=== PATIENT | female | born 1960 | race Caucasian/White ===

== ENCOUNTER 2023-07-23 14:27 | Inpatient (IN) ==
[2023-07-23] MEDS ORDERED: Propofol 10 mg/ml 100 ML BTL 1,000 MG/100 ML BTL ONE ×2 (20:05→20:21)
[2023-07-23] MEDS: Propofol 10 mg/ml 100 ML BTL 1,000 MG/100 ML BTL IV SCH (20:15)
[2023-07-23] MEDS ORDERED: fentaNYL 100 mcg/2 ml 50 MCG/ML VIAL ONE (20:23)
[2023-07-23] MEDS ORDERED: fentaNYL 100 mcg/2 ml 50 MCG/ML VIAL IV SLOW PU ONE (20:35)
[2023-07-23] MEDS: Chlorhexidine MOUTHWASH 0.12% 15 ML UDC TOPICAL SCH (20:59)
[2023-07-23] MEDS: fentaNYL INFUSION 50 mcg/mL VL 2,500 MCG/50 ML VIAL IV SCH (21:00)
[2023-07-23 21:21] LABS: ABS Basophils 0.1 10^3/uL (0.0-0.1); ABS Lymphocytes 0.2 10^3/uL (1.0-4.8); ABS Monocytes 0.2 10^3/uL (0.0-0.9); ABS Neutrophils 5.9 10^3/uL (1.5-7.6); ABS Nucleated RBC 0.01 10^3/ul; Hematocrit 33.3 % (35-45); Hemoglobin 11.6 g/dL (11.5-14.3); Lymphocyte % 3.9 %; Mean Corpuscular Hemoglobin 34.8 pg (27-33); Mean Corpuscular Hgb Conc 34.7 g/dL (31-36); Mean Corpuscular Volume 100.2 fL (80-97); Mean Platelet Volume 7.8 fL (7.5-11.2); Nucleated Red Blood Cells % 0.1 %/100WBC (0.0-0.8); Platelet Count 240 10^3/uL (150-450); Red Blood Count 3.32 10^6/uL (3.63-4.92); Red Cell Distribution Width 16.5 % (12-17); White Blood Count 6.4 10^3/uL (3.8-11.8)
[2023-07-23 21:40] LABS: Albumin 3.3 g/dL (3.2-5.2); Albumin/Globulin Ratio 1.4 (1-3); C Reactive Protein 9.72 mg/L (<8.01); Creatinine, Serum 0.86 mg/dL (0.51-0.95); Globulin 2.3 g/dL (2-4); Magnesium 1.6 mg/dL (1.9-2.7); Potassium 3.6 mmol/L (3.5-5.0); Total Bilirubin 0.4 mg/dL (0.2-1.0); Total Protein 5.6 g/dL (6.4-8.9); eGFR CKD-EPI 75.9 (>60)
[2023-07-23] MEDS ORDERED: Folic Acid IV 1 MG in NS 0.9% 50 ML 50 ML IV ONE (22:35)
[2023-07-23] MEDS ORDERED: Magnesium Sulfate 2 gm BAG 2 GM/50 ML BAG IVPB ONE (22:36)
[2023-07-23] MEDS: Enoxaparin 60 MG/0.6 ML SYR SUBCUT SCH (23:43)
[2023-07-23] MEDS: Pantoprazole VIAL 40 MG VIAL IV SCH (23:44)
[2023-07-23] MEDS: Thiamine 100 MG/ML 2 ml VIAL 100 MG in NS 0.9% 50 ML 50 ML IV SCH (23:59)
[2023-07-24 00:39] LABS: Urine Appearance Cloudy; Urine Bilirubin Negative (Negative); Urine Blood Negative (Negative); Urine Color Yellow; Urine Glucose Negative (Negative); Urine Ketones Negative (Negative); Urine Nitrite Negative (Negative); Urine Protein 1+(30 mg/dL) (Negative); Urine Specific Gravity 1.023 (1.002-1.030); Urine Urobilinogen Negative (Negative)
[2023-07-24 00:47] LABS: Urine Bacteria Absent (Absent); Urine Granular Casts Present (Absent); Urine Red Blood Cell 1+(3-5/hpf) (Absent); Urine Squamous Epithelial Cell Present (Absent); Urine White Blood Cell Absent (Absent)
[2023-07-24] MEDS: Propofol 10 mg/ml 100 ML BTL 1,000 MG/100 ML BTL IV SCH ×4 (01:33→21:26)
[2023-07-24] MEDS: Chlorhexidine MOUTHWASH 0.12% 15 ML UDC TOPICAL SCH ×6 (02:03→23:29)
[2023-07-24] MEDS ORDERED: fentaNYL 100 mcg/2 ml 50 MCG/ML VIAL IV SLOW PU ONE (02:47)
[2023-07-24] MEDS ORDERED: fentaNYL 100 mcg/2 ml 50 MCG/ML VIAL ONE (02:48)
[2023-07-24 05:29] LABS: ABS Lymphocytes 0.5 10^3/uL (1.0-4.8); ABS Monocytes 0.4 10^3/uL (0.0-0.9); ABS Neutrophils 5.8 10^3/uL (1.5-7.6); Hematocrit 30.8 % (35-45); Hemoglobin 10.7 g/dL (11.5-14.3); Lymphocyte % 6.9 %; Mean Corpuscular Hemoglobin 34.9 pg (27-33); Mean Corpuscular Hgb Conc 34.7 g/dL (31-36); Mean Corpuscular Volume 100.4 fL (80-97); Platelet Count 213 10^3/uL (150-450); Red Blood Count 3.07 10^6/uL (3.63-4.92); Red Cell Distribution Width 16.6 % (12-17); White Blood Count 6.7 10^3/uL (3.8-11.8)
[2023-07-24 05:48] LABS: Albumin 3.2 g/dL (3.2-5.2); Albumin/Globulin Ratio 1.5 (1-3); Calcium 8.1 mg/dL (8.6-10.3); Creatinine, Serum 0.83 mg/dL (0.51-0.95); Globulin 2.1 g/dL (2-4); Magnesium 2.5 mg/dL (1.9-2.7); Potassium 3.7 mmol/L (3.5-5.0); Total Bilirubin 0.3 mg/dL (0.2-1.0); Total Protein 5.3 g/dL (6.4-8.9); eGFR CKD-EPI 79.2 (>60)
[2023-07-24] MEDS: Enoxaparin 60 MG/0.6 ML SYR SUBCUT SCH ×2 (11:29→23:29)
[2023-07-24] MEDS ORDERED: Midazolam 5 mg/5 ml VIAL 1 mg/ml 5 ml VIAL (5 mg) ONE ×2 (11:50→13:57)
[2023-07-24] MEDS: Midazolam 2 mg/2 ml VIAL 1 mg/ml 2 ml VIAL (2 mg) IV SLOW PU SCH ×3 (11:52→14:01)
[2023-07-24] MEDS: fentaNYL INFUSION 50 mcg/mL VL 2,500 MCG/50 ML VIAL IV SCH (14:33)
[2023-07-24] MEDS: Dexamethasone IV 4 MG/ML VIAL 1 ml VIAL IV SLOW PU SCH (17:37)
[2023-07-24] MEDS: Pantoprazole VIAL 40 MG VIAL IV SCH (23:29)
[2023-07-24] MEDS: Thiamine 100 MG/ML 2 ml VIAL 100 MG in NS 0.9% 50 ML 50 ML IV SCH (23:43)
[2023-07-25] MEDS: Propofol 10 mg/ml 100 ML BTL 1,000 MG/100 ML BTL IV SCH ×4 (01:45→18:38)
[2023-07-25] MEDS: Chlorhexidine MOUTHWASH 0.12% 15 ML UDC TOPICAL SCH ×6 (01:46→21:32)
[2023-07-25 04:40] LABS: ABS Lymphocytes 0.3 10^3/uL (1.0-4.8); ABS Monocytes 0.1 10^3/uL (0.0-0.9); ABS Neutrophils 4.7 10^3/uL (1.5-7.6); ABS Nucleated RBC 0.01 10^3/ul; Eosinophil % 0.2 %; Hematocrit 30.9 % (35-45); Hemoglobin 10.6 g/dL (11.5-14.3); Lymphocyte % 6.7 %; Mean Corpuscular Hemoglobin 35.1 pg (27-33); Mean Corpuscular Hgb Conc 34.4 g/dL (31-36); Mean Corpuscular Volume 102.2 fL (80-97); Mean Platelet Volume 8.5 fL (7.5-11.2); Nucleated Red Blood Cells % 0.1 %/100WBC (0.0-0.8); Platelet Count 208 10^3/uL (150-450); Red Blood Count 3.03 10^6/uL (3.63-4.92); Red Cell Distribution Width 16.8 % (12-17); White Blood Count 5.2 10^3/uL (3.8-11.8)
[2023-07-25] MEDS: fentaNYL INFUSION 50 mcg/mL VL 2,500 MCG/50 ML VIAL IV SCH ×2 (04:54→21:25)
[2023-07-25 04:58] LABS: Albumin 3.1 g/dL (3.2-5.2); Albumin/Globulin Ratio 1.4 (1-3); Calcium 8.1 mg/dL (8.6-10.3); Creatinine, Serum 0.79 mg/dL (0.51-0.95); Globulin 2.2 g/dL (2-4); HDL Cholesterol 76.3 mg/dL; Magnesium 2.5 mg/dL (1.9-2.7); Potassium 3.7 mmol/L (3.5-5.0); Total Bilirubin 0.3 mg/dL (0.2-1.0); Total Protein 5.3 g/dL (6.4-8.9)
[2023-07-25] MEDS: Midazolam 2 mg/2 ml VIAL 1 mg/ml 2 ml VIAL (2 mg) IV SLOW PU PRN ×5 (07:30→23:57)
[2023-07-25] MEDS: Dexamethasone IV 4 MG/ML VIAL 1 ml VIAL IV SLOW PU SCH (08:46)
[2023-07-25] MEDS: Enoxaparin 60 MG/0.6 ML SYR SUBCUT SCH ×2 (10:48→21:32)
[2023-07-25] MEDS: Thiamine 100 MG/ML 2 ml VIAL 100 MG in NS 0.9% 50 ML 50 ML IV SCH (21:30)
[2023-07-25] MEDS: Pantoprazole VIAL 40 MG VIAL IV SCH (21:32)
[2023-07-25] MEDS ORDERED: Atropine 1 MG/ML INJ 1 ML VIAL IV PUSH PRN (23:43)
[2023-07-25 23:59] LABS: Hematocrit 32.1 % (35-45); Hemoglobin 11.2 g/dL (11.5-14.3); Mean Corpuscular Hemoglobin 35.4 pg (27-33); Mean Corpuscular Hgb Conc 34.8 g/dL (31-36); Mean Corpuscular Volume 101.6 fL (80-97); Mean Platelet Volume 8.4 fL (7.5-11.2); Platelet Count 216 10^3/uL (150-450); Red Blood Count 3.16 10^6/uL (3.63-4.92); Red Cell Distribution Width 16.9 % (12-17); White Blood Count 5.5 10^3/uL (3.8-11.8)
[2023-07-26 00:18] LABS: Calcium 8.5 mg/dL (8.6-10.3); Creatinine, Serum 0.76 mg/dL (0.51-0.95); Magnesium 2.4 mg/dL (1.9-2.7); Potassium 3.8 mmol/L (3.5-5.0)
[2023-07-26] MEDS: Midazolam PREMIXBAG 1 MG/ML NS 100 ML IV SCH ×2 (00:51→19:00)
[2023-07-26] MEDS: Midazolam 2 mg/2 ml VIAL 1 mg/ml 2 ml VIAL (2 mg) IV SLOW PU PRN ×4 (02:12→19:45)
[2023-07-26] MEDS: fentaNYL INFUSION 50 mcg/mL VL 2,500 MCG/50 ML VIAL IV SCH ×2 (02:20→13:45)
[2023-07-26] MEDS: Chlorhexidine MOUTHWASH 0.12% 15 ML UDC TOPICAL SCH ×6 (02:25→23:07)
[2023-07-26 02:32] LABS: ABS Lymphocytes 0.7 10^3/uL (1.0-4.8); ABS Monocytes 0.3 10^3/uL (0.0-0.9); ABS Neutrophils 4.4 10^3/uL (1.5-7.6); ABS Nucleated RBC 0.01 10^3/ul; Eosinophil % 0.2 %; Lymphocyte % 13.2 %; Nucleated Red Blood Cells % 0.2 %/100WBC (0.0-0.8); Target Cells 3+
[2023-07-26 04:27] LABS: Hemoglobin 11.1 g/dL (11.5-14.3); Mean Corpuscular Hemoglobin 35.6 pg (27-33); Mean Corpuscular Hgb Conc 34.8 g/dL (31-36); Mean Corpuscular Volume 102.4 fL (80-97); Mean Platelet Volume 8.8 fL (7.5-11.2); Platelet Count 205 10^3/uL (150-450); Red Blood Count 3.13 10^6/uL (3.63-4.92); Red Cell Distribution Width 16.7 % (12-17); White Blood Count 5.3 10^3/uL (3.8-11.8)
[2023-07-26 04:47] LABS: Albumin 3.1 g/dL (3.2-5.2); Albumin/Globulin Ratio 1.4 (1-3); Calcium 8.4 mg/dL (8.6-10.3); Creatinine, Serum 0.76 mg/dL (0.51-0.95); Globulin 2.2 g/dL (2-4); Magnesium 2.5 mg/dL (1.9-2.7); Potassium 3.4 mmol/L (3.5-5.0); Total Bilirubin 0.3 mg/dL (0.2-1.0); Total Protein 5.3 g/dL (6.4-8.9)
[2023-07-26 05:10] LABS: ABS Basophils 0.1 10^3/uL (0.0-0.1); ABS Lymphocytes 0.9 10^3/uL (1.0-4.8); ABS Monocytes 0.3 10^3/uL (0.0-0.9); Eosinophil % 0.4 %; Lymphocyte % 17.3 %; RBC Morphology Normal (Normal)
[2023-07-26] MEDS ORDERED: Dexamethasone IV 10 MG in NS 0.9% 50 ML 50 ML IVPB ONE (08:00)
[2023-07-26] MEDS ORDERED: Iohexol 350 (CONTRAST) 500 ML MDV IV ONE (09:40)
[2023-07-26] MEDS ORDERED: Labetalol IV 5 MG/ML 20 ml VIAL IV PUSH ONE (10:12)
[2023-07-26] MEDS: Enoxaparin 60 MG/0.6 ML SYR SUBCUT SCH ×2 (11:37→23:07)
[2023-07-26] MEDS ORDERED: hydrALAZINE 20 mg/ml 1 ML Vial IV IV SLOW PU ONE (13:05)
[2023-07-26] MEDS: KCL 20 MEQ/100 ML IVPREMIX 20 MEQ/100 ML BAG IV SCH ×2 (14:33→16:40)
[2023-07-26] MEDS ORDERED: PPN (PERIPHERAL) 24 HR with D10W 1000 ml BAG 1,000 ML, Amino Acid Infusion 10% 850 ML, ... IV SCH (17:00)
[2023-07-26] MEDS: Pantoprazole VIAL 40 MG VIAL IV SCH (23:07)
[2023-07-26] MEDS: Thiamine 100 MG/ML 2 ml VIAL 100 MG in NS 0.9% 50 ML 50 ML IV SCH (23:15)
[2023-07-27] MEDS: Chlorhexidine MOUTHWASH 0.12% 15 ML UDC TOPICAL SCH ×6 (02:51→23:01)
[2023-07-27] MEDS: Midazolam 2 mg/2 ml VIAL 1 mg/ml 2 ml VIAL (2 mg) IV SLOW PU PRN (03:30)
[2023-07-27] MEDS: fentaNYL INFUSION 50 mcg/mL VL 2,500 MCG/50 ML VIAL IV SCH ×2 (04:45→17:41)
[2023-07-27 04:58] LABS: Hematocrit 38.3 % (35-45); Hemoglobin 12.9 g/dL (11.5-14.3); Mean Corpuscular Hemoglobin 34.4 pg (27-33); Mean Corpuscular Hgb Conc 33.5 g/dL (31-36); Mean Corpuscular Volume 102.7 fL (80-97); Mean Platelet Volume 9.1 fL (7.5-11.2); Platelet Count 240 10^3/uL (150-450); Red Blood Count 3.73 10^6/uL (3.63-4.92); Red Cell Distribution Width 17.4 % (12-17); White Blood Count 11.3 10^3/uL (3.8-11.8)
[2023-07-27 05:10] LABS: ABS Basophils 0.1 10^3/uL (0.0-0.1); ABS Lymphocytes 1.9 10^3/uL (1.0-4.8); ABS Monocytes 0.6 10^3/uL (0.0-0.9); ABS Neutrophils 8.8 10^3/uL (1.5-7.6); ABS Nucleated RBC 0.01 10^3/ul; Eosinophil % 0.2 %; Nucleated Red Blood Cells % 0.1 %/100WBC (0.0-0.8)
[2023-07-27 05:14] LABS: Albumin 3.6 g/dL (3.2-5.2); Albumin/Globulin Ratio 1.4 (1-3); Calcium 8.9 mg/dL (8.6-10.3); Creatinine, Serum 0.64 mg/dL (0.51-0.95); Globulin 2.6 g/dL (2-4); Magnesium 2.2 mg/dL (1.9-2.7); Phosphorus 3.8 mg/dL (2.5-5.0); Potassium 4.3 mmol/L (3.5-5.0); Total Bilirubin 0.3 mg/dL (0.2-1.0); Total Protein 6.2 g/dL (6.4-8.9); eGFR CKD-EPI 99.2 (>60)
[2023-07-27] MEDS ORDERED: Labetalol IV 5 MG/ML 20 ml VIAL IV PUSH ONE ×2 (09:07→17:02)
[2023-07-27] MEDS ORDERED: Midazolam 5 mg/5 ml VIAL 1 mg/ml 5 ml VIAL (5 mg) ONE ×2 (09:07→12:43)
[2023-07-27] MEDS ORDERED: Midazolam 10 mg/10 ml VIAL 1 mg/ml 10 ml VIAL (10 mg) IV SLOW PU ONE (09:08)
[2023-07-27] MEDS ORDERED: Labetalol IV 5 MG/ML 20 ml VIAL ONE (09:08)
[2023-07-27] MEDS ORDERED: Rocuronium 50 mg VIAL 10 mg/ml 5 ml VIAL (50 mg) ONE ×2 (09:12→12:55)
[2023-07-27] MEDS ORDERED: Midazolam 5 mg/5 ml VIAL 1 mg/ml 5 ml VIAL (5 mg) IV SLOW PU ONE ×3 (09:12→13:05)
[2023-07-27] MEDS ORDERED: Midazolam 2 mg/2 ml VIAL 1 mg/ml 2 ml VIAL (2 mg) IV SLOW PU ONE ×2 (09:12→13:05)
[2023-07-27] MEDS ORDERED: Rocuronium 50 mg VIAL 10 mg/ml 5 ml VIAL (50 mg) IV ONE ×2 (09:13→13:05)
[2023-07-27] MEDS: Midazolam PREMIXBAG 1 MG/ML NS 100 ML IV SCH ×2 (10:51→21:37)
[2023-07-27] MEDS ORDERED: Furosemide 40 mg/4 ml IV VIAL IV ONE (11:03)
[2023-07-27] MEDS: Enoxaparin 60 MG/0.6 ML SYR SUBCUT SCH ×2 (11:31→23:01)
[2023-07-27] MEDS: Cefepime 2 GM in Dextrose 2 GM/50 ML BAG IV SCH (12:46)
[2023-07-27] MEDS ORDERED: Midazolam 2 mg/2 ml VIAL 1 mg/ml 2 ml VIAL (2 mg) ONE (12:54)
[2023-07-27] MEDS ORDERED: fentaNYL 100 mcg/2 ml 50 MCG/ML VIAL ONE (12:55)
[2023-07-27] MEDS: fentaNYL 100 mcg/2 ml 50 MCG/ML VIAL IV SLOW PU PRN (13:00)
[2023-07-27 18:31] LABS: Body Fluid Source Broncheoalveolar lav
[2023-07-27 18:33] LABS: Body Fluid Appearance Cloudy; Body Fluid Color Yellow
[2023-07-27 19:22] LABS: Body Fluid Total Cells Counted 300
[2023-07-27] MEDS: Pantoprazole VIAL 40 MG VIAL IV SCH (23:01)
[2023-07-27] MEDS: Thiamine 100 MG/ML 2 ml VIAL 100 MG in NS 0.9% 50 ML 50 ML IV SCH (23:01)
[2023-07-28] MEDS: Cefepime 2 GM in Dextrose 2 GM/50 ML BAG IV SCH ×2 (00:53→11:58)
[2023-07-28] MEDS: Chlorhexidine MOUTHWASH 0.12% 15 ML UDC TOPICAL SCH ×6 (02:16→22:42)
[2023-07-28] MEDS: Acetaminophen IV 1 GM/100ML 1,000 MG/100 ML BAG IV PRN ×2 (02:19→14:51)
[2023-07-28 04:59] LABS: ABS Lymphocytes 0.6 10^3/uL (1.0-4.8); ABS Monocytes 0.3 10^3/uL (0.0-0.9); ABS Neutrophils 8.6 10^3/uL (1.5-7.6); Eosinophil % 0.1 %; Hematocrit 35.7 % (35-45); Hemoglobin 12.2 g/dL (11.5-14.3); Lymphocyte % 6.4 %; Mean Corpuscular Hemoglobin 35.1 pg (27-33); Mean Corpuscular Hgb Conc 34.1 g/dL (31-36); Mean Corpuscular Volume 102.9 fL (80-97); Mean Platelet Volume 8.8 fL (7.5-11.2); Platelet Count 160 10^3/uL (150-450); Red Blood Count 3.47 10^6/uL (3.63-4.92); Red Cell Distribution Width 16.5 % (12-17); White Blood Count 9.5 10^3/uL (3.8-11.8)
[2023-07-28 05:06] LABS: Calcium 8.4 mg/dL (8.6-10.3); Creatinine, Serum 0.63 mg/dL (0.51-0.95); Magnesium 1.7 mg/dL (1.9-2.7); Phosphorus 3.8 mg/dL (2.5-5.0); Potassium 3.7 mmol/L (3.5-5.0); eGFR CKD-EPI 99.6 (>60)
[2023-07-28] MEDS ORDERED: Magnesium Sulfate 2 gm BAG 2 GM/50 ML BAG IVPB ONE (05:19)
[2023-07-28] MEDS: fentaNYL 100 mcg/2 ml 50 MCG/ML VIAL IV SLOW PU PRN (06:20)
[2023-07-28] MEDS ORDERED: fentaNYL INFUSION 50 mcg/mL VL 2,500 MCG/50 ML VIAL IV SCH ×2 (07:39→08:04)
[2023-07-28] MEDS: Midazolam PREMIXBAG 1 MG/ML NS 100 ML IV SCH ×2 (08:01→18:30)
[2023-07-28] MEDS: fentaNYL INFUSION 50 mcg/mL VL 2,500 MCG/50 ML VIAL IV SCH ×2 (08:25→22:43)
[2023-07-28] MEDS: Enoxaparin 60 MG/0.6 ML SYR SUBCUT SCH ×2 (10:42→22:43)
[2023-07-28] MEDS: Labetalol IV 5 MG/ML 20 ml VIAL IV PUSH PRN ×2 (11:44→23:16)
[2023-07-28] MEDS ORDERED: Lactated Ringers 1000 ml BAG 1,000 ML IV ONE (15:50)
[2023-07-28] MEDS: Pantoprazole VIAL 40 MG VIAL IV SCH (22:42)
[2023-07-28] MEDS: Thiamine 100 MG/ML 2 ml VIAL 100 MG in NS 0.9% 50 ML 50 ML IV SCH (22:43)
[2023-07-29] MEDS: Cefepime 2 GM in Dextrose 2 GM/50 ML BAG IV SCH ×2 (01:22→17:13)
[2023-07-29] MEDS: Chlorhexidine MOUTHWASH 0.12% 15 ML UDC TOPICAL SCH ×6 (01:23→22:53)
[2023-07-29] MEDS: Acetaminophen IV 1 GM/100ML 1,000 MG/100 ML BAG IV PRN (03:11)
[2023-07-29 03:52] LABS: Calcium 8.4 mg/dL (8.6-10.3); Creatinine, Serum 0.64 mg/dL (0.51-0.95); Potassium 3.6 mmol/L (3.5-5.0); eGFR CKD-EPI 99.2 (>60)
[2023-07-29 03:55] LABS: ABS Eosinophils 0.2 10^3/uL (0.0-0.5); ABS Lymphocytes 0.4 10^3/uL (1.0-4.8); ABS Monocytes 0.3 10^3/uL (0.0-0.9); ABS Neutrophils 6.6 10^3/uL (1.5-7.6); Eosinophil % 2.6 %; Hematocrit 36.5 % (35-45); Hemoglobin 12.4 g/dL (11.5-14.3); Lymphocyte % 5.5 %; Mean Corpuscular Hemoglobin 34.7 pg (27-33); Mean Corpuscular Volume 102.1 fL (80-97); Mean Platelet Volume 9.3 fL (7.5-11.2); Platelet Count 150 10^3/uL (150-450); Red Blood Count 3.58 10^6/uL (3.63-4.92); Red Cell Distribution Width 16.5 % (12-17); White Blood Count 7.5 10^3/uL (3.8-11.8)
[2023-07-29] MEDS: Labetalol IV 5 MG/ML 20 ml VIAL IV PUSH PRN ×2 (08:40→21:36)
[2023-07-29] MEDS: Midazolam PREMIXBAG 1 MG/ML NS 100 ML IV SCH (09:18)
[2023-07-29] MEDS: Enoxaparin 60 MG/0.6 ML SYR SUBCUT SCH ×2 (09:57→22:53)
[2023-07-29] MEDS ORDERED: Magnesium Sulfate 2 gm BAG 2 GM/50 ML BAG IVPB ONE (10:39)
[2023-07-29] MEDS: KCL 20 MEQ/100 ML IVPREMIX 20 MEQ/100 ML BAG IV SCH ×2 (11:09→13:25)
[2023-07-29 13:59] LABS: PCO2 Arterial 43 mmHg (35-45); PO2 Arterial 67 mmHg (80-100)
[2023-07-29] MEDS: fentaNYL INFUSION 50 mcg/mL VL 2,500 MCG/50 ML VIAL IV SCH (17:40)
[2023-07-29] MEDS: Pantoprazole VIAL 40 MG VIAL IV SCH (22:53)
[2023-07-29] MEDS: Thiamine 100 MG/ML 2 ml VIAL 100 MG in NS 0.9% 50 ML 50 ML IV SCH (22:55)
[2023-07-30] MEDS: Cefepime 2 GM in Dextrose 2 GM/50 ML BAG IV SCH ×2 (00:45→13:15)
[2023-07-30] MEDS: Midazolam PREMIXBAG 1 MG/ML NS 100 ML IV SCH (00:45)
[2023-07-30] MEDS: Labetalol IV 5 MG/ML 20 ml VIAL IV PUSH PRN (03:33)
[2023-07-30] MEDS: Chlorhexidine MOUTHWASH 0.12% 15 ML UDC TOPICAL SCH ×6 (03:33→21:43)
[2023-07-30 04:40] LABS: ABS Eosinophils 0.3 10^3/uL (0.0-0.5); ABS Lymphocytes 0.5 10^3/uL (1.0-4.8); ABS Monocytes 0.4 10^3/uL (0.0-0.9); ABS Neutrophils 5.1 10^3/uL (1.5-7.6); Eosinophil % 5.1 %; Lymphocyte % 8.5 %; Mean Corpuscular Hemoglobin 34.8 pg (27-33); Mean Corpuscular Hgb Conc 34.3 g/dL (31-36); Mean Corpuscular Volume 101.4 fL (80-97); Mean Platelet Volume 9.5 fL (7.5-11.2); Platelet Count 172 10^3/uL (150-450); Red Blood Count 3.16 10^6/uL (3.63-4.92); Red Cell Distribution Width 15.8 % (12-17); White Blood Count 6.4 10^3/uL (3.8-11.8)
[2023-07-30 04:55] LABS: Calcium 8.2 mg/dL (8.6-10.3); Creatinine, Serum 0.52 mg/dL (0.51-0.95); Potassium 3.4 mmol/L (3.5-5.0); eGFR CKD-EPI 104.3 (>60)
[2023-07-30] MEDS ORDERED: Labetalol IV 5 MG/ML 20 ml VIAL IV PUSH PRN (05:35)
[2023-07-30] MEDS: KCL 20 MEQ/100 ML IVPREMIX 20 MEQ/100 ML BAG IV SCH ×3 (06:25→23:41)
[2023-07-30] MEDS ORDERED: Furosemide 40 mg/4 ml IV VIAL IV ONE (09:55)
[2023-07-30] MEDS: Enoxaparin 60 MG/0.6 ML SYR SUBCUT SCH ×2 (11:55→23:50)
[2023-07-30] MEDS: Acetaminophen IV 1 GM/100ML 1,000 MG/100 ML BAG IV PRN ×2 (13:08→21:27)
[2023-07-30] MEDS ORDERED: Bumetanide IV 0.25 MG/ML 4 ml VIAL (1 mg) ONE (16:11)
[2023-07-30] MEDS: Bumetanide IV 10 MG in Premix IV 0 ML IV SCH ×2 (16:13→21:22)
[2023-07-30 16:44] LABS: Hematocrit 31.8 % (35-45); Hemoglobin 10.8 g/dL (11.5-14.3); Mean Corpuscular Hemoglobin 34.4 pg (27-33); Mean Corpuscular Hgb Conc 33.8 g/dL (31-36); Mean Corpuscular Volume 101.8 fL (80-97); Mean Platelet Volume 9.7 fL (7.5-11.2); Platelet Count 181 10^3/uL (150-450); Red Blood Count 3.13 10^6/uL (3.63-4.92); Red Cell Distribution Width 15.9 % (12-17); White Blood Count 6.5 10^3/uL (3.8-11.8)
[2023-07-30] MEDS: Midazolam 2 mg/2 ml VIAL 1 mg/ml 2 ml VIAL (2 mg) IV SLOW PU PRN ×2 (17:08→19:02)
[2023-07-30 17:10] LABS: Anion Gap 8 mmol/L (2-16); Blood Urea Nitrogen 11 mg/dL (6-24); CO2 Carbon Dioxide 24 mmol/L (22-32); Calcium 7.7 mg/dL (8.6-10.3); Chloride 105 mmol/L (101-111); Creatinine, Serum 0.44 mg/dL (0.51-0.95); Glucose 88 mg/dL (70-100); Magnesium 1.5 mg/dL (1.9-2.7); Sodium 137 mmol/L (135-145); eGFR CKD-EPI 108.6 (>60)
[2023-07-30 17:18] LABS: ABS Eosinophils 0.1 10^3/uL (0.0-0.5); ABS Lymphocytes 0.4 10^3/uL (1.0-4.8); ABS Monocytes 0.5 10^3/uL (0.0-0.9); ABS Neutrophils 5.5 10^3/uL (1.5-7.6); ABS Nucleated RBC 0.01 10^3/ul; Eosinophil % 2.2 %; Lymphocyte % 5.8 %; Nucleated Red Blood Cells % 0.2 %/100WBC (0.0-0.8)
[2023-07-30] MEDS ORDERED: Magnesium Sulf 4 GM/100 ML IV 4,000 MG/100 ML BAG IVPB ONE (17:20)
[2023-07-30] MEDS ORDERED: Midazolam PREMIXBAG 1 MG/ML NS 100 ML IV SCH (19:07)
[2023-07-30] MEDS: fentaNYL INFUSION 50 mcg/mL VL 2,500 MCG/50 ML VIAL IV SCH (20:03)
[2023-07-30] MEDS: Propofol 10 mg/ml 100 ML BTL 1,000 MG/100 ML BTL IV SCH (22:22)
[2023-07-30 22:26] LABS: Calcium 8.9 mg/dL (8.6-10.3); Creatinine, Serum 0.56 mg/dL (0.51-0.95); Magnesium 2.9 mg/dL (1.9-2.7); Potassium 3.1 mmol/L (3.5-5.0); eGFR CKD-EPI 102.5 (>60)
[2023-07-30] MEDS ORDERED: Potassium Chloride LIQUID 20 MEQ/15 ML LIQUID PO ONE (23:32)
[2023-07-30] MEDS: Thiamine 100 MG/ML 2 ml VIAL 100 MG in NS 0.9% 50 ML 50 ML IV SCH (23:45)
[2023-07-30] MEDS: Pantoprazole VIAL 40 MG VIAL IV SCH (23:48)
[2023-07-31] MEDS: KCL 20 MEQ/100 ML IVPREMIX 20 MEQ/100 ML BAG IV SCH ×5 (02:00→23:00)
[2023-07-31] MEDS: Chlorhexidine MOUTHWASH 0.12% 15 ML UDC TOPICAL SCH ×4 (02:23→17:43)
[2023-07-31] MEDS: Cefepime 2 GM in Dextrose 2 GM/50 ML BAG IV SCH ×2 (02:25→13:13)
[2023-07-31] MEDS: Midazolam 2 mg/2 ml VIAL 1 mg/ml 2 ml VIAL (2 mg) IV SLOW PU PRN (04:13)
[2023-07-31 04:42] LABS: ABS Eosinophils 0.3 10^3/uL (0.0-0.5); ABS Lymphocytes 0.8 10^3/uL (1.0-4.8); ABS Monocytes 0.7 10^3/uL (0.0-0.9); ABS Neutrophils 7.2 10^3/uL (1.5-7.6); ABS Nucleated RBC 0.01 10^3/ul; Eosinophil % 2.9 %; Hemoglobin 11.8 g/dL (11.5-14.3); Lymphocyte % 8.9 %; Mean Corpuscular Hgb Conc 34.7 g/dL (31-36); Mean Platelet Volume 9.8 fL (7.5-11.2); Nucleated Red Blood Cells % 0.1 %/100WBC (0.0-0.8); Platelet Count 223 10^3/uL (150-450); Red Blood Count 3.37 10^6/uL (3.63-4.92); Red Cell Distribution Width 16.2 % (12-17)
[2023-07-31 05:01] LABS: Creatinine, Serum 0.64 mg/dL (0.51-0.95); Magnesium 2.8 mg/dL (1.9-2.7); Potassium 4.7 mmol/L (3.5-5.0); eGFR CKD-EPI 99.2 (>60)
[2023-07-31] MEDS: Bumetanide IV 10 MG in Premix IV 0 ML IV SCH ×9 (05:26→17:37)
[2023-07-31] MEDS: Propofol 10 mg/ml 100 ML BTL 1,000 MG/100 ML BTL IV SCH (07:25)
[2023-07-31 08:51] LABS: PCO2 Arterial 36 mmHg (35-45)
[2023-07-31 09:02] LABS: PO2 Arterial 57 mmHg (80-100)
[2023-07-31 09:22] LABS: Creatinine, Serum 0.74 mg/dL (0.51-0.95); Magnesium 2.4 mg/dL (1.9-2.7); Potassium 3.6 mmol/L (3.5-5.0); eGFR CKD-EPI 90.9 (>60)
[2023-07-31] MEDS: Acetaminophen IV 1 GM/100ML 1,000 MG/100 ML BAG IV PRN (09:42)
[2023-07-31] MEDS: Enoxaparin 60 MG/0.6 ML SYR SUBCUT SCH ×2 (13:13→23:00)
[2023-07-31] MEDS: Haloperidol 5 mg/ml SDV IV/IM 5 MG/ML AMP IV SLOW PU PRN ×2 (15:46→22:58)
[2023-07-31] MEDS ORDERED: LORazepam 2 mg VIAL 1 ml ONE (16:42)
[2023-07-31] MEDS ORDERED: Lorazepam PYXIS KEY PRN ×2 (16:44→20:01)
[2023-07-31] MEDS ORDERED: LORazepam 2 mg VIAL 1 ml IV PUSH ONE (16:44)
[2023-07-31 18:21] LABS: Calcium 9.5 mg/dL (8.6-10.3); Creatinine, Serum 0.79 mg/dL (0.51-0.95); Magnesium 1.9 mg/dL (1.9-2.7)
[2023-07-31] MEDS: LORazepam 2 mg VIAL 1 ml IV PUSH PRN (20:45)
[2023-07-31] MEDS ORDERED: Megestrol 400 MG/10 ML SUSP PO SCH (21:00)
[2023-07-31] MEDS: Thiamine 100 MG/ML 2 ml VIAL 100 MG in NS 0.9% 50 ML 50 ML IV SCH (23:00)
[2023-07-31] MEDS: Pantoprazole VIAL 40 MG VIAL IV SCH (23:00)
[2023-08-01] MEDS: Cefepime 2 GM in Dextrose 2 GM/50 ML BAG IV SCH ×2 (01:00→12:37)
[2023-08-01] MEDS: KCL 20 MEQ/100 ML IVPREMIX 20 MEQ/100 ML BAG IV SCH ×4 (01:00→12:59)
[2023-08-01] MEDS: LORazepam 2 mg VIAL 1 ml IV PUSH PRN ×2 (03:30→09:10)
[2023-08-01 05:19] LABS: ABS Basophils 0.1 10^3/uL (0.0-0.1); ABS Lymphocytes 0.7 10^3/uL (1.0-4.8); ABS Monocytes 1.1 10^3/uL (0.0-0.9); ABS Nucleated RBC 0.01 10^3/ul; Eosinophil % 0.3 %; Hematocrit 37.4 % (35-45); Hemoglobin 12.9 g/dL (11.5-14.3); Lymphocyte % 5.8 %; Mean Corpuscular Hemoglobin 34.7 pg (27-33); Mean Corpuscular Hgb Conc 34.6 g/dL (31-36); Mean Corpuscular Volume 100.3 fL (80-97); Mean Platelet Volume 9.8 fL (7.5-11.2); Nucleated Red Blood Cells % 0.1 %/100WBC (0.0-0.8); Platelet Count 293 10^3/uL (150-450); Red Blood Count 3.73 10^6/uL (3.63-4.92); Red Cell Distribution Width 15.7 % (12-17); White Blood Count 12.9 10^3/uL (3.8-11.8)
[2023-08-01 06:37] LABS: Calcium 8.9 mg/dL (8.6-10.3); Creatinine, Serum 0.78 mg/dL (0.51-0.95); Magnesium 1.7 mg/dL (1.9-2.7); Potassium 3.4 mmol/L (3.5-5.0); eGFR CKD-EPI 85.3 (>60)
[2023-08-01] MEDS ORDERED: Furosemide 40 mg/4 ml IV VIAL IV ONE (09:59)
[2023-08-01] MEDS ORDERED: Furosemide 40 mg/4 ml IV VIAL ONE (10:09)
[2023-08-01] MEDS: Enoxaparin 60 MG/0.6 ML SYR SUBCUT SCH (11:10)
[2023-08-01] MEDS: Acetaminophen IV 1 GM/100ML 1,000 MG/100 ML BAG IV PRN (15:20)
[2023-08-01] MEDS ORDERED: Magnesium Sulfate 2 gm BAG 2 GM/50 ML BAG IVPB ONE (17:17)
[2023-08-01] MEDS ORDERED: Magnesium Sulfate IV 1GM/100ML 1 GM/100 ML BAG IV ONE (19:17)
[2023-08-01 22:56] LABS: PCO2 Arterial 38 mmHg (35-45); PO2 Arterial 63 mmHg (80-100)
[2023-08-02] MEDS: Pantoprazole VIAL 40 MG VIAL IV SCH ×2 (00:03→22:17)
[2023-08-02] MEDS: Thiamine 100 MG/ML 2 ml VIAL 100 MG in NS 0.9% 50 ML 50 ML IV SCH ×2 (00:03→23:25)
[2023-08-02] MEDS: Enoxaparin 60 MG/0.6 ML SYR SUBCUT SCH ×3 (00:04→22:19)
[2023-08-02 01:55] LABS: PCO2 Arterial 36 mmHg (35-45); PO2 Arterial 73 mmHg (80-100)
[2023-08-02 07:13] LABS: ABS Basophils 0.1 10^3/uL (0.0-0.1); ABS Eosinophils 0.2 10^3/uL (0.0-0.5); ABS Lymphocytes 1.2 10^3/uL (1.0-4.8); ABS Monocytes 0.9 10^3/uL (0.0-0.9); ABS Neutrophils 9.1 10^3/uL (1.5-7.6); ABS Nucleated RBC 0.01 10^3/ul; Eosinophil % 2.1 %; Hematocrit 36.8 % (35-45); Hemoglobin 12.4 g/dL (11.5-14.3); Lymphocyte % 10.1 %; Mean Corpuscular Hemoglobin 34.3 pg (27-33); Mean Corpuscular Hgb Conc 33.6 g/dL (31-36); Mean Platelet Volume 9.3 fL (7.5-11.2); Nucleated Red Blood Cells % 0.1 %/100WBC (0.0-0.8); Platelet Count 290 10^3/uL (150-450); Red Blood Count 3.61 10^6/uL (3.63-4.92); Red Cell Distribution Width 15.9 % (12-17); White Blood Count 11.5 10^3/uL (3.8-11.8)
[2023-08-02 07:22] LABS: Calcium 8.9 mg/dL (8.6-10.3); Creatinine, Serum 0.7 mg/dL (0.51-0.95); Magnesium 2.5 mg/dL (1.9-2.7); Potassium 3.6 mmol/L (3.5-5.0); eGFR CKD-EPI 97.1 (>60)
[2023-08-02] MEDS ORDERED: Haloperidol 5 mg/ml SDV IV/IM 5 MG/ML AMP IV SLOW PU PRN (11:24)
[2023-08-02 12:07] LABS: PCO2 Arterial 37 mmHg (35-45); PO2 Arterial 73 mmHg (80-100)
[2023-08-02] MEDS: Acetaminophen IV 1 GM/100ML 1,000 MG/100 ML BAG IV SCH ×2 (16:47→22:16)
[2023-08-02] MEDS: Cefepime 1 GM in Dextrose 1 GM/50 ML BAG IV SCH ×2 (17:07→22:17)
[2023-08-03] MEDS: Acetaminophen IV 1 GM/100ML 1,000 MG/100 ML BAG IV SCH ×3 (00:26→18:08)
[2023-08-03] MEDS: Cefepime 1 GM in Dextrose 1 GM/50 ML BAG IV SCH ×3 (06:00→23:54)
[2023-08-03 08:21] LABS: Albumin 3.3 g/dL (3.2-5.2); Albumin/Globulin Ratio 1.2 (1-3); Calcium 8.6 mg/dL (8.6-10.3); Creatinine, Serum 0.61 mg/dL (0.51-0.95); Globulin 2.8 g/dL (2-4); Potassium 3.3 mmol/L (3.5-5.0); Total Bilirubin 0.4 mg/dL (0.2-1.0); Total Protein 6.1 g/dL (6.4-8.9); eGFR CKD-EPI 100.4 (>60)
[2023-08-03] MEDS ORDERED: KCL 20 MEQ/100 ML IVPREMIX 20 MEQ/100 ML BAG IV ONE (09:03)
[2023-08-03] MEDS: Enoxaparin 60 MG/0.6 ML SYR SUBCUT SCH (10:44)
[2023-08-04] MEDS: Enoxaparin 60 MG/0.6 ML SYR SUBCUT SCH ×2 (00:53→12:47)
[2023-08-04] MEDS: Pantoprazole VIAL 40 MG VIAL IV SCH (01:20)
[2023-08-04] MEDS: Thiamine 100 MG/ML 2 ml VIAL 100 MG in NS 0.9% 50 ML 50 ML IV SCH (01:21)
[2023-08-04] MEDS: Acetaminophen IV 1 GM/100ML 1,000 MG/100 ML BAG IV SCH ×3 (02:11→17:21)
[2023-08-04] MEDS ORDERED: Morphine 2 MG/ML SYRINGE IV ONE (03:57)
[2023-08-04] MEDS: Cefepime 1 GM in Dextrose 1 GM/50 ML BAG IV SCH (07:36)
[2023-08-04] MEDS ORDERED: Potassium Chlor 20 meq TAB.ER PO ONE (08:19)
[2023-08-04] MEDS: Multivitamins/Minerals TAB PO SCH (09:31)
[2023-08-04 09:39] LABS: ABS Eosinophils 0.2 10^3/uL (0.0-0.5); ABS Monocytes 0.5 10^3/uL (0.0-0.9); ABS Neutrophils 4.5 10^3/uL (1.5-7.6); Eosinophil % 3.4 %; Hematocrit 35.2 % (35-45); Hemoglobin 12.2 g/dL (11.5-14.3); Lymphocyte % 16.5 %; Mean Corpuscular Hemoglobin 34.8 pg (27-33); Mean Corpuscular Hgb Conc 34.6 g/dL (31-36); Mean Corpuscular Volume 100.4 fL (80-97); Mean Platelet Volume 8.7 fL (7.5-11.2); Platelet Count 379 10^3/uL (150-450); Red Blood Count 3.51 10^6/uL (3.63-4.92); Red Cell Distribution Width 15.6 % (12-17); White Blood Count 6.2 10^3/uL (3.8-11.8)
[2023-08-04 09:57] LABS: Albumin 3.4 g/dL (3.2-5.2); Albumin/Globulin Ratio 1.2 (1-3); Calcium 8.6 mg/dL (8.6-10.3); Creatinine, Serum 0.65 mg/dL (0.51-0.95); Globulin 2.9 g/dL (2-4); Potassium 3.6 mmol/L (3.5-5.0); Total Bilirubin 0.3 mg/dL (0.2-1.0); Total Protein 6.3 g/dL (6.4-8.9); eGFR CKD-EPI 98.9 (>60)
[2023-08-04 20:56] LABS: ABS Basophils 0.1 10^3/uL (0.0-0.1); ABS Eosinophils 0.2 10^3/uL (0.0-0.5); ABS Lymphocytes 1.3 10^3/uL (1.0-4.8); ABS Monocytes 0.4 10^3/uL (0.0-0.9); ABS Neutrophils 3.7 10^3/uL (1.5-7.6); Eosinophil % 3.7 %; Hematocrit 32.1 % (35-45); Hemoglobin 11.3 g/dL (11.5-14.3); Lymphocyte % 23.3 %; Mean Corpuscular Hemoglobin 34.9 pg (27-33); Mean Corpuscular Hgb Conc 35.2 g/dL (31-36); Mean Corpuscular Volume 99.1 fL (80-97); Mean Platelet Volume 8.7 fL (7.5-11.2); Platelet Count 367 10^3/uL (150-450); Red Blood Count 3.24 10^6/uL (3.63-4.92); Red Cell Distribution Width 15.2 % (12-17); White Blood Count 5.7 10^3/uL (3.8-11.8)
[2023-08-04 21:13] LABS: Calcium 8.4 mg/dL (8.6-10.3); Creatinine, Serum 0.65 mg/dL (0.51-0.95); eGFR CKD-EPI 98.9 (>60)
[2023-08-04] MEDS ORDERED: LORazepam 2 mg VIAL 1 ml IV PUSH ONE (23:18)
[2023-08-04] MEDS ORDERED: Lorazepam PYXIS KEY PRN (23:18)
[2023-08-05] MEDS: Acetaminophen IV 1 GM/100ML 1,000 MG/100 ML BAG IV SCH ×3 (01:02→16:43)
[2023-08-05] MEDS ORDERED: Lorazepam PYXIS KEY PRN ×2 (04:56→21:28)
[2023-08-05] MEDS: Multivitamins/Minerals TAB PO SCH (10:29)
[2023-08-05] MEDS ORDERED: LORazepam 2 mg VIAL 1 ml IV PUSH ONE (21:28)
[2023-08-05] MEDS: LORazepam 2 mg VIAL 1 ml IV PUSH ONE ×2 (21:39)
[2023-08-06] MEDS: Acetaminophen IV 1 GM/100ML 1,000 MG/100 ML BAG IV SCH ×3 (00:09→18:34)
[2023-08-06] MEDS ORDERED: Morphine 2 MG/ML SYRINGE IV ONE (04:07)
[2023-08-06 07:58] LABS: Hematocrit 31.4 % (35-45); Hemoglobin 11.1 g/dL (11.5-14.3); Mean Corpuscular Hemoglobin 34.6 pg (27-33); Mean Corpuscular Hgb Conc 35.4 g/dL (31-36); Mean Corpuscular Volume 97.9 fL (80-97); Mean Platelet Volume 8.7 fL (7.5-11.2); Platelet Count 370 10^3/uL (150-450); Red Blood Count 3.21 10^6/uL (3.63-4.92); Red Cell Distribution Width 15.5 % (12-17); White Blood Count 5.3 10^3/uL (3.8-11.8)
[2023-08-06 08:14] LABS: Calcium 8.4 mg/dL (8.6-10.3); Creatinine, Serum 0.55 mg/dL (0.51-0.95); Potassium 3.6 mmol/L (3.5-5.0); eGFR CKD-EPI 102.9 (>60)
[2023-08-06] MEDS: Multivitamins/Minerals TAB PO SCH (09:08)
[2023-08-06 10:39] LABS: ABS Eosinophils 0.3 10^3/uL (0.0-0.5); ABS Monocytes 0.4 10^3/uL (0.0-0.9); ABS Neutrophils 3.5 10^3/uL (1.5-7.6); Lymphocyte % 19.7 %; Nucleated Red Blood Cells % 0.1 %/100WBC (0.0-0.8)
[2023-08-06] MEDS ORDERED: LORazepam 2 mg VIAL 1 ml IV PUSH ONE (21:51)
[2023-08-06] MEDS ORDERED: Lorazepam PYXIS KEY PRN (21:51)
[2023-08-07] MEDS: Acetaminophen IV 1 GM/100ML 1,000 MG/100 ML BAG IV SCH ×3 (04:11→17:14)
[2023-08-07] MEDS ORDERED: LORazepam 2 mg VIAL 1 ml IV PUSH ONE (04:28)
[2023-08-07] MEDS ORDERED: Lorazepam PYXIS KEY PRN (04:28)
[2023-08-07] MEDS ORDERED: LORazepam 2 mg VIAL 1 ml ONE (04:33)
[2023-08-07 05:11] LABS: ABS Basophils 0.1 10^3/uL (0.0-0.1); ABS Eosinophils 0.3 10^3/uL (0.0-0.5); ABS Lymphocytes 1.4 10^3/uL (1.0-4.8); ABS Monocytes 0.6 10^3/uL (0.0-0.9); ABS Neutrophils 4.2 10^3/uL (1.5-7.6); Eosinophil % 4.5 %; Hematocrit 32.1 % (35-45); Hemoglobin 11.4 g/dL (11.5-14.3); Lymphocyte % 21.7 %; Mean Corpuscular Hemoglobin 34.8 pg (27-33); Mean Corpuscular Hgb Conc 35.5 g/dL (31-36); Mean Corpuscular Volume 98.1 fL (80-97); Mean Platelet Volume 8.7 fL (7.5-11.2); Nucleated Red Blood Cells % 0.1 %/100WBC (0.0-0.8); Platelet Count 488 10^3/uL (150-450); Red Blood Count 3.27 10^6/uL (3.63-4.92); Red Cell Distribution Width 15.6 % (12-17); White Blood Count 6.6 10^3/uL (3.8-11.8)
[2023-08-07 05:27] LABS: Calcium 8.9 mg/dL (8.6-10.3); Creatinine, Serum 0.63 mg/dL (0.51-0.95); Potassium 3.5 mmol/L (3.5-5.0); eGFR CKD-EPI 99.6 (>60)
[2023-08-07] MEDS: DULoxetine DR 60 mg CAP PO SCH (11:13)
[2023-08-07] MEDS: Multivitamins/Minerals TAB PO SCH (11:26)
[2023-08-07 14:19] LABS: Magnesium 1.8 mg/dL (1.9-2.7)
[2023-08-07] MEDS ORDERED: Magnesium Sulfate 2 gm BAG 2 GM/50 ML BAG IVPB ONE (15:47)
[2023-08-08] MEDS: Acetaminophen IV 1 GM/100ML 1,000 MG/100 ML BAG IV SCH ×2 (03:33→08:22)
[2023-08-08] MEDS: DULoxetine DR 60 mg CAP PO SCH (08:27)
[2023-08-08] MEDS: Multivitamins/Minerals TAB PO SCH (08:27)
[2023-08-09 09:14] VITALS: BP 152/86
[2023-08-09] MEDS: Multivitamins/Minerals TAB PO SCH (09:20)
[2023-08-09] MEDS: DULoxetine DR 60 mg CAP PO SCH (09:20)
== END 2023-08-09 11:45 | disposition home or self-care (01) | DRG 915 ==
LOC: ICU → OBSVTOIN 20:20 → SUATTDRO 20:38 → MEDTELE 08-01 23:50 → MED 08-03 19:19
PROVIDERS: ADMIT Student in an Organized Health Care Education/Training Program; ATTEND Internal Medicine